=== PATIENT | female | born 1995 | race Two or more races ===

== ENCOUNTER 2021-02-20 08:52 | Emergency (ER) | payer MEDICAID, SELFPAY ==
[2021-02-20 09:02] VITALS: BP 146/92; PULSE 105; RESP 16; TEMP 37.5; O2SAT 98; BMI 29.2
--- NOTE | 2021-02-20 09:26 | ED.FEMALEGU ---
HPI - Female Genitourinary General Chief complaint: Urogenital-Female Stated complaint: vaginal odor Time Seen by Provider: 02/20/21 09:13 Source: patient Mode of arrival: ambulatory Limitations: no limitations History of Present Illness HPI Narrative: 25 y/o female with history of alcoholism, now sober x3 months who presents to the ER with c/o foul smelling vaginal discharge for 3 months. She reports when she was drinking heavily she had unprotected sex with different men but has not been sexaully active since she has been sober. She report ongoing vaginal discharge, sometimes white sometimes yellow. No itching. She reports some discomfort at times but no pelvic or abdominal pain. No fevers. MD elicited complaint: vaginal discharge Onset (ago): month(s) Location of symptoms: vaginal Severity: moderate Female Urogenital Radiation: Non-Radiating Consistency: constant Vaginal discharge: white, yellow and vaginal odor Vaginal bleeding: none Exacerbating factors: none Relieving factors: none Associated symptoms: denies other symptoms Treatment prior to arrival: none Sexual activity: No Patient : No Date of Last Menstrual Period: 01/24/21 Related Data Previous Rx's Medication Instructions Recorded metronidazole [Flagyl] 500 mg PO Q12H #14 tab 02/20/21 Allergies Allergy/AdvReac Type Severity Reaction Status Date / Time amoxicillin [AMOXICILLIN] Allergy Unknown RASH Unverified 05/12/20 16:34 latex [LATEX] Allergy Unknown RASH Unverified 05/12/20 16:34 morphine [MORPHINE] Allergy Unknown UNKNOWN Unverified 05/12/20 16:34 shellfish derived Allergy Unknown UNKNOWN Unverified 05/12/20 16:34 [SHELLFISH DERIVED] Latex Allergy Unknown Uncoded 04/06/19 00:00 Review of Systems Review of Systems: Constitutional: No Fever, No Chills ENT/Mouth: No sore throat, No Rhinorrhea, No Swallowing Difficulty Cardiovascular: No Chest Pain, No SOB, No Orthopnea, No Edema Respiratory: No Cough, No Sputum, No Wheezing, No dyspnea Gastrointestinal: No Nausea, No Vomiting, No Diarrhea, No abdominal Pain Genitourinary: No Dysuria, No Urinary Frequency, No Hematuria, +vaginal discharge Musculoskeletal: No joint pain, No Myalgias Skin: No Skin Lesions, No rash Neuro: No Weakness, No Numbness, No Dizziness, No Headache Heme/Lymph: No Bruising, No Lymphadenopathy PMFSH Past Medical History Medical History (Updated 02/20/21 @ 10:17 by SOTERO Irizarry) Alcohol abuse Asthma Surgical History (Updated 02/20/21 @ 09:06 by Barbi Geiger) H/O wrist surgery Date of Last Menstrual Period: 01/24/21 Social History Social History Advance Directives: Yes Advance Directives Information Provided: Yes Advance Directives on File: No Patient : No Physical Exam Vital Signs: Vital Signs: Last Vital Signs Temp 99.5 F 02/20/21 09:02 Pulse 105 H 02/20/21 09:02 Resp 16 02/20/21 09:02 BP 146/92 H 02/20/21 09:02 Pulse Ox 98 02/20/21 09:02 Body Mass Index 29.2 Appearance: Alert. Oriented X3. No acute distress. Eyes: Pupils equal, round and reactive to light. ENT: Pharynx normal. Neck: Normal inspection. Neck supple. CVS: Normal heart rate and rhythm. Pulses normal. Respiratory: No respiratory distress. Breath sounds normal. Abdomen: Soft and nontender. +BS x4 Pelvic: normal external gentialia, moderate amount of creamy white discharge Skin: Skin warm and dry. Normal skin color. Normal skin turgor. No rashes. Extremities: No lower extremity edema. Neuro: Oriented X 3. No motor deficit. No sensory deficit. Course Course Course Narrative: 25 y/o female presenting with foul smelling vaginal discharge x3 months. She would like to be treated for STI's. Exam is most consistent with BV, will treat accordingly. Hx of the same in 2019. She is agreeable with plan and stable for d/c. MDM - Female Genitourinary Lab Data Labs: Lab Results 02/20/21 02/20/21 Range/Units 09:46 09:47 Urine Color YELLOW Urine Appearance CLEAR Urine pH 6.0 (5.0-8.0) Ur Specific Tracy 1.015 (1.005-1.025) Urine Protein NEG (NEG-TRACE) MG/DL Urine Glucose (UA) NEG (NEG) MG/DL Urine Ketones NEG (NEG) MG/DL Urine Blood TRACE (NEG) Urine Nitrite NEG (NEG) Ur Leukocyte Esterase NEG (NEG) Urine Test NEGATIVE (NEGATIVE) Discharge Plan Discharge Clinical Impression: Vaginitis Qualifiers: Chronicity: acute Qualified Code(s): N76.0 - Acute vaginitis Patient Disposition: Home, Self-Care Instructions: Bacterial Vaginosis (ED) Additional Instructions: You were tested for and treated for possible Gonorrhea and Chlamydia If you are positive for either, we will call you. You may need additional antibiotics if they are positive Your exam is consistent with bacterial vaginosis - start taking the prescribed antibiotic tomorrow, you were given 1st dose in the ER. Recommend following up with the tapestry or your FREIGHT CONDUCTOR If you develop new or worsening symptoms come back to the ER for further evaluation. Prescriptions: New metronidazole [Flagyl] 500 mg tablet 500 mg PO Q12H Qty: 14 RF: 0
[2021-02-20 09:59] LABS: Glucose Urine UA NEG (NEG); Leukocyte Esterase Urine NEG (NEG); Nitrite Urine NEG (NEG); Specific Gravity - Urine 1.015 (1.005-1.025); Urine Blood TRACE (NEG); Urine Ketones NEG (NEG); Urine Protein NEG (NEG-TRACE)
[2021-02-20 10:05] LABS: Appearance Urine CLEAR; Color Urine YELLOW
[2021-02-20 10:05] LABS: UPreg QC Valid YES; Urine Pregnancy NEGATIVE (NEGATIVE)
[2021-02-20] MEDS: metroNIDAZOLE 500 MG TABLET 2000 MG PO (10:19)
[2021-02-20] MEDS: Azithromycin 500 MG TABLET 1000 MG PO (10:19)
[2021-02-20] MEDS: cefTRIAXone sodium 500 MG, Lidocaine HCl 1 % MPF 1 ML IM (10:20)
[2021-02-20 10:31] LABS: Bacteria Urine 1+ /LPF; Squamous Epithelial Cell Urine 3+ /LPF
[2021-02-20 11:47] LABS: CT PCR NOT DETECTED (Not Detect.); NG PCR NOT DETECTED (Not Detect.)
[2021-02-21 09:21] LABS: BV Int Neg Control Negative (Negative); BV Int Pos Control Positive (Positive)
== END 2021-02-20 10:33 | disposition home or self-care (01) ==
PROVIDERS: Physician Assistant; Emergency Provider Emergency Medicine Emergency Medical Services
DX: N76.0 Acute vaginitis (principal); J45.909 Unspecified asthma, uncomplicated
CPT/HCPCS: 81001; 81003; 81025; 87480; 87491; 87510; 87591; 87660; 96372; 99284; J0696

== ENCOUNTER 2024-05-21 14:38 | Outpatient (AMB) | payer OTHER, SELFPAY ==
--- NOTE | 2024-05-21 14:42 | A.OFFPC_ITS ---
Vital Signs 05/21/24 14:44 Height 5 ft 4.8 in Weight 188 lb BMI 31.5 BP 118/78 Blood Pressure Location Lt brachial Position Sitting Pulse 79 Pulse Source Pulse Oximeter Pulse Oximetry (%) 98 Oxygen Delivery Method Room Air Intake Visit Reasons: Prevention Specialist requesting PE Intake Note: Pt is here today for New patient visit PE. Pt states that she has not seen a doctor in a long time. Allergies amoxicillin [AMOXICILLIN] Allergy (Unknown, Unverified 05/12/20 16:34) RASH morphine [MORPHINE] Allergy (Unknown, Unverified 05/12/20 16:34) UNKNOWN shellfish derived [SHELLFISH DERIVED] Allergy (Unknown, Unverified 05/12/20 16:34) UNKNOWN Latex Allergy (Unknown, Uncoded 05/21/24 14:59) Unknown Medication List - Last Reconciled 05/21/24 by MARSHALL Rodriguez multivitamin 1 tab PO DAILY Tobacco use date assessed: 05/21/24 Dental Screening Dental Screen Date: 05/21/24 Did you have a dental visit in the last 12 months?: Yes Did you have a dental problem in the last 6 months where you did not have access to dental care?: No Was dental information given to patient?: Patient has dentist HPI Prevention Specialist requesting PE HPI Details New pt is here for a PE. Will order labs. Pt has not seen a provider in several years. Reports nipple inversion, denies any discharge or lumps. Pt would like a referral to [facility] arm[facility] personnel [id number]. Will refer today. Pt does not know if she has asthma??? She has not been diagnosed with asthma, according to her. She cnnnot recall any wheezing, used to smoke. Will order PFT testing. Pt has cysts vs lipomas to her shins. She reports that these are tender and increasing in size. Will refer to general surgery for possible removal. [facility] Medical History Hx of Alcohol abuse Asthma Surgical History H/O wrist surgery Family History Father Substance use disorder Mother Hypertension Substance use disorder Sister Diabetes Mental health disorder Social History Housing: House Patient Tobacco Use Status: Former Tobacco user (1 year ago) Tobacco use type: Cigarette e-Cigarette/Vaping Use: Currently Using service: No Current occupational status: unemployed Cognitive needs: No Hearing needs: No Vision needs: No Questionnaire PHQ-9 Over the last 2 weeks, how often have you been bothered by any of the following problems? 1. Little interest or pleasure in doing things: several days 2. Feeling down, depressed, or hopeless: several days 3. Trouble falling or staying asleep, or sleeping too much: nearly every day 4. Feeling tired or having little energy: several days 5. Poor appetite or overeating: several days 6. Feeling bad about yourself - or that you are a failure or have let yourself or your family down: several days 7. Trouble concentrating on things, such as reading the newspaper or watching television: not at all 8. Moving or speaking so slowly that other people could have noticed. Or the opposite - being so fidgety or restless that you have been moving around a lot more than usual: not at all 9. Thoughts that you would be better off or of hurting yourself in some way: not at all Total score: 8 Depression Screening Interpretation: Negative Depression Screening Done: Yes 87143 - PHQ-9 Billing: Yes Source: Developed by Drs. Lionel Redman, Pat Dent, Travis Crespo and colleagues, with an educational juvenal from [employer] Thrive Questionnaire Date Thrive assessed: 05/21/24 I am a: Patient What is your living situation today?: I have a steady place to live Within the past 12 months, did the food you bought not last and you didn't have the money to get more?: Sometimes True Within the past 12 months, did you worry whether your food would run out before you got money to buy more?: Sometimes True Do you have trouble paying for medicines?: Yes Do you have trouble getting transportation to medical appointments?: Yes Do you have trouble paying your heating and electricity bill?: Yes Do you have trouble taking care of your child, family member or friend?: No Do you have trouble with day-to-day activities such as bathing, preparing meals, shopping, managing finances, etc.?: Yes Are you interested in more education?: No Please select the resources that you would like help with: Housing/Senior Living, Food, Paying for medicine, Transportation and Daily support Currently or been in a relationship where the following occur: I choose not to answer THRIVE Score: 4 AUDIT C Alcohol Use Questionnaire (AUDIT-C) 1. How often do you have a drink containing alcohol?: 2-3 times a week 2. How many drinks containing alcohol do you have on a typical day when you are drinking?: 10 or more 3. How often do you have six or more drinks on one occasion?: Weekly Total Score: 10 Score Reviewed/Action Taken: Yes (will have BH reach out to pt for possible referral to addiction med) RAYMOND-7 AMB Questionnaire RAYMOND-7 Date RAYMOND - 7 assessed: 05/21/24 Feeling nervous, anxious, or on edge: 1 = Several days Not being able to stop or control worryin = Several days Worrying too much about different things: 1 = Several days Trouble relaxin = Several days Being so restless that it is hard to sit still: 0 = Not at all Becoming easily annoyed or irritable: 2 = More than half the days Feeling afraid as if something awful might happen: 3 = Nearly every day Total RAYMOND-7 score (0-4 normal; 5-9 mild; 10-14 moderate; 15-21 severe): 9 Source: Developed by Drs. Lionel Redman, Pat Dent, Travis Crespo and colleagues, with an educational juvenal from [employer] RAYMOND-7 Assessment Billing RAYMOND-7 Assessment Tool: RAYMOND-7 Assessment 10213 Review of Systems Const Denies chills and Denies fever(s) Eyes Denies blurry vision ENT Denies vertigo, Denies dizziness and Denies sore throat Card Denies chest pain at rest, Denies chest pain with activity, Denies diaphoresis, Denies dyspnea and Denies dyspnea on exertion Resp Denies cough, Denies dyspnea, Denies dyspnea on exertion and Denies wheezing GI Denies abdominal pain, Denies melena, Denies hematochezia, Denies constipation, Denies diarrhea and Denies loose stools Denies hematuria Musc Denies numbness and Denies tingling Skin/Breast Denies lesions Neuro Denies vertigo, Denies dizziness, Denies numbness and Denies tingling Psych Denies anxiety, Denies depression, Denies homicidal ideation, Denies suicidal ideation and Denies other (substance abuse) Aller/Immun Denies wheezing Physical exam (Primary Care) Vital Signs: Last Vital Signs Pulse 79 05/21/24 14:44 BP 118/78 05/21/24 14:44 Pulse Ox 98 05/21/24 14:44 Oxygen Delivery Method Room Air 05/21/24 14:44 BMI result Body Mass Index 31.5 Tobacco/Smoking Status: Tobacco use Status Tobacco use date assessed 05/21/24 05/21/24 14:54 Patient Tobacco Use Status Former Tobacco user (1 year 05/21/24 14:54 ago) Tobacco use type Cigarette 05/21/24 14:54 e-Cigarette/Vaping Use Currently Using 05/21/24 14:54 PHQ-9: PHQ-9 Score PHQ-9: Total score 8 05/21/24 15:01 Depression Screening Interpretation: Negative Thrive Assessment: Date of Thrive Assessment Date Thrive assessed 05/21/24 05/21/24 14:54 Currently or been in a relationship where the following occur: I choose not to answer Const General: cooperative Nutritional Appearance: well nourished Orientation/consciousness: patient oriented x3 HENMT Head: Yes normal to inspection, Yes normocephalic and Yes atraumatic Ears: TM's normal bilaterally Eyes General: appearance normal, both eyes and all related structures Alignment and Position: alignment normal and position normal Neck Neck: Yes normal visual inspection, Yes no lymphadenopathy and Yes supple Resp Effort & Inspection: normal respiratory effort Auscultation: clear to auscultation bilaterally Cardio Rate: regular rate Rhythm: regular rhythm Heart sounds: S1 normal heart sound present, S2 normal heart sound present and no murmurs GI Palpation (GI): Soft to palpation and nontender Auscultation: normal bowel sounds Skin Rashes: no rashes Neuro General: patient oriented x3, moves all extremities, no focal motor deficits and deep tendon reflexes 2+ bilaterally Romberg Test: Negative Extrem Other: bilat shins with round ? cysts/lipomas. Tenderness with touch. no surrounding erythema Psych Appearance: grossly normal Mental Status: mental status grossly normal Speech and movement: Normal speech and movement present Affect: normal affect Attitude: cooperative Thought process: Normal thought process present Thought content: Normal thought content present Insight: Good insight present (Psych) Judgement: Good judgement present (Psych) Assessment and Plan Assessment & Plan (1) Inversion, nipple: Code(s): N64.59 - Other signs and symptoms in breast Plan: Referred to [id number] (2) Screening for cervical cancer: Code(s): Z12.4 - Encounter for screening for malignant neoplasm of cervix Plan: Referred to [id number] (3) Asthma: Comment: ? Hx of asthma, pt not sure?? Code(s): J45.909 - Unspecified asthma, uncomplicated Plan: PFT testing ordered (4) Encounter for routine adult physical exam with abnormal findings: Code(s): Z00. - Encounter for general adult medical examination with abnormal findings Plan: Labs ordered (5) Lipoma: Comment: lipoma vs cysts Code(s): D17.9 - Benign lipomatous neoplasm, unspecified Plan: referred to Plan The patient agreed to the use of a medical records receptionist for this encounter. Scribed for RUTH Douglass-BC by Danna Beasley medical records receptionist, on 05/21/2024 at 14:55 EST. Orders: Orders Complete Blood Count Auto Diff Today Z00.01 - Encounter for general adult medical examination with abnormal findings Comprehensive [place]. Panel Fast Today Z00.01 - Encounter for general adult medical examination with abnormal findings Lipid Panel Today Z00.01 - Encounter for general adult medical examination with abnormal findings PFT pulmonary function test Today J45.909 - Unspecified asthma, uncomplicated TSH reflex Free T4 Today Z00.01 - Encounter for general adult medical examination with abnormal findings UA CC w/rflx Micro + Cult Today Z00.01 - Encounter for general adult medical examination with abnormal findings Referrals General Surgery Referral D17.9 - Benign lipomatous neoplasm, unspecified [facility] [employer] Referral N64.59 - Other signs and symptoms in breast, Z12.4 - Encounter for screening for malignant neoplasm of cervix Medications: Discontinued metronidazole (Flagyl) Supervising MD Eddie Jain Discontinued Reason: Patient Completed Course 500 mg PO Q12H 14 tabs 0RF Coding Level of Care Code New Pt Prev Care 18-39yr(59605 Diagnoses Inversion, nipple N64.59 Screening for cervical cancer Z12.4 Asthma J45.909 Encounter for routine adult physical exam with abnormal findings Z00.01 Lipoma D17.9 Additional Codes RAYMOND-7 Assessment Billing - RAYMOND-7 Assessment Tool: RAYMOND-7 Assessment 72757 ([id number])
[2024-05-21 14:44] VITALS: BP 118/78; PULSE 79; O2SAT 98; BMI 31.5
== END 2024-05-21 16:00 | disposition home or self-care (01) ==
PROVIDERS: Visit Provider Nurse Practitioner Family
DX: N64.59 Other signs and symptoms in breast (principal); Z12.4 Encounter for screening for malignant neoplasm of cervix; J45.909 Unspecified asthma, uncomplicated; Z00.01 Encounter for general adult medical examination with abnormal findings; D17.9 Benign lipomatous neoplasm, unspecified

== ENCOUNTER → 2024-05-21 14:38 | Outpatient (BNVA) | payer OTHER, SELFPAY | PROVIDERS: Visit Provider Nurse Practitioner Family | DX: Z00.01 Encounter for general adult medical examination with abnormal findings (principal); N64.59 Other signs and symptoms in breast; J45.909 Unspecified asthma, uncomplicated; D17.9 Benign lipomatous neoplasm, unspecified | CPT/HCPCS: 96127; 99385 ==

== ENCOUNTER 2024-06-23 13:35 | Outpatient (REF) | payer OTHER, SELFPAY ==
[2024-06-23 10:29] VITALS: PULSE 82; RESP 16; O2SAT 96
--- NOTE | 2024-06-23 13:42 | PFT_ITS ---
Indication: Asthma Spirometry [FEV1 to FVC 79%; FEV1 3.05 L; FVC 3.85 L. No significant response to bronchodilators noted. To note the FEF 01/12/2075 is down to 58% suggestive of small airways disease. Maximum voluntary ventilation 71% predicted] Lung Volumes [Total capacity 87% predicted; expiratory reserve volume 55% predicted] Diffusion Capacity [DLCO 104% predicted] Comparisons [None] Interpretation [No obstructive nor restrictive ventilatory defects identified. No significant response to bronchodilators noted. There is some evidence of small airways disease which is suspicious for asthma. Lung volumes are within normal limits. Decreasing the expiratory reserve volume could be secondary to an elevated BMI. Normal diffusing capacity. If asthma is in the differential methacholine challenge may be helpful for assessing for hyperactive airways. Clinical correlation warranted.] MTDD
== END 2024-06-23 13:36 | disposition home or self-care (01) ==
LOC: HO.RESP 13:35
PROVIDERS: PCP Nurse Practitioner Family; Visit Provider Nurse Practitioner Family
DX: J45.909 Unspecified asthma, uncomplicated (principal)
CPT/HCPCS: 94010; 94640; 94727; 94729

== ENCOUNTER → 2024-06-23 13:42 | Outpatient (BNV) | payer OTHER, SELFPAY | PROVIDERS: PCP Nurse Practitioner Family; Visit Provider Hospitalist | DX: J45.909 Unspecified asthma, uncomplicated (principal) | CPT/HCPCS: 94060; 94727; 94729 ==

== ENCOUNTER 2024-07-06 12:56 | Outpatient (AMB) | payer OTHER, SELFPAY ==
--- NOTE | 2024-07-06 12:57 | A.OFFVIS_ITS ---
Vital Signs 07/06/24 12:58 Height 5 ft 4.8 in Weight 187 lb 15.987 oz BMI 31.5 Intake Visit Reasons: tender lipomas vs cysts Intake Note: This patient presents for tender cysts vs lipomas. Pt c/o; reports tenderness. Veneer Manufacturer Required: No Accompanied by: Self / Same As Patient Allergies amoxicillin [AMOXICILLIN] Allergy (Unknown, Unverified 07/06/24 13:04) RASH morphine [MORPHINE] Allergy (Unknown, Unverified 07/06/24 13:04) UNKNOWN shellfish derived [SHELLFISH DERIVED] Allergy (Unknown, Unverified 07/06/24 13:04) UNKNOWN Latex Allergy (Unknown, Uncoded 07/06/24 13:04) Unknown Medication List - Last Reconciled 07/06/24 by Dagoberto Polanco MD multivitamin 1 tab PO DAILY HPI HPI tender lipomas vs cysts: Details: 29-year-old female referred for subcutaneous masses on both the left and right lower legs. She says that she has had this for ?a few years?. She says that this used to be small but have been increasing in size. This has been bothering him with pain and discomfort and she wants these removed. She denies any skin changes or discharge. [facility] Medical History (Updated 07/06/24 @ 13:13 by Dagoberto Polanco MD) Subcutaneous mass of both lower legs Hx of Alcohol abuse Asthma Surgical History H/O wrist surgery Family History Father Substance use disorder Mother Hypertension Substance use disorder Sister Diabetes Mental health disorder Social History Housing: House Patient Tobacco Use Status: Former Tobacco user (1 year ago) Tobacco use type: Cigarette e-Cigarette/Vaping Use: Currently Using service: No Current occupational status: unemployed Cognitive needs: No Hearing needs: No Vision needs: No Review of Systems Const Denies chills and Denies fever(s) Card Denies chest pain, Denies dyspnea and Denies dyspnea on exertion Resp Denies cough, Denies dyspnea and Denies dyspnea on exertion GI Denies hematochezia and Denies change in bowel habits Denies hematuria Musc Denies back pain and Denies limited range of motion Neuro Denies focal weakness and Denies convulsions Psych Denies depression and Denies mood swings Physical Exam Vital Signs: BMI result Body Mass Index 31.5 Const Other: Obese General: comfortable and no acute distress Orientation/consciousness: patient oriented x3 Neck Neck: Yes no lymphadenopathy Resp Auscultation: clear to auscultation bilaterally Cardio Rhythm: regular rhythm GI Palpation (GI): Soft to palpation, nontender and no guarding Neuro General: patient oriented x3 Extrem Other: Subcutaneous mass on the lateral aspect of the right lower leg about 1 cm in size Subcutaneous mass on the lateral aspect of the left lower leg about 1 cm in size as well Both appeared to be lipomas in consistency Assessment & Plan Assessment & Plan (1) Subcutaneous mass of both lower legs: Code(s): R22.43 - Localized swelling, mass and lump, lower limb, bilateral Category: Medical Plan: She has a subcutaneous mass on the left lower leg and another 1 in the right lower leg. This appeared to be lipomas. She wants this removed. She understands the technique of excision under local anesthesia. She was aware of the risks, benefits, and alternatives. She was given consent We will schedule this under local anesthesia here in the office on her next visit. Coding Level of Care Code New Pt Level 3 (13736) Diagnoses Subcutaneous mass of both lower legs R22.43
[2024-07-06 12:58] VITALS: BMI 31.5
== END 2024-07-06 13:25 | disposition home or self-care (01) ==
PROVIDERS: PCP Nurse Practitioner Family; Visit Provider Surgery
DX: R22.43 Localized swelling, mass and lump, lower limb, bilateral (principal)
CPT/HCPCS: 99203

== ENCOUNTER → 2024-07-06 12:56 | Outpatient (BNVA) | payer OTHER, SELFPAY | PROVIDERS: PCP Nurse Practitioner Family; Visit Provider Surgery | DX: R22.43 Localized swelling, mass and lump, lower limb, bilateral (principal) | CPT/HCPCS: 99202 ==

== ENCOUNTER 2024-08-20 13:46 | Outpatient (AMB) | payer OTHER, SELFPAY ==
--- NOTE | 2024-08-20 13:51 | MHC.OFFVIS ---
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 Allergies amoxicillin [AMOXICILLIN] Allergy (Unknown, Unverified 08/20/24 13:54) RASH morphine [MORPHINE] Allergy (Unknown, Unverified 08/20/24 13:54) UNKNOWN shellfish derived [SHELLFISH DERIVED] Allergy (Unknown, Unverified 08/20/24 13:54) UNKNOWN Latex Allergy (Unknown, Uncoded 08/20/24 13:54) Unknown Medication List - Last Reconciled 08/20/24 by Lilibeth Cunha CNM multivitamin 1 tab PO DAILY Is last menstrual period known: Yes Last menstrual period: 08/16/24 HPI HPI New patient nipple inversion: Details: Patient is here because she has concerns about her nipples and her breasts where she has noticed that often they can be inverted and sometimes they are very wrinkled in their appearance and she looked things up online and she had concerns because many of her symptoms by their description matched descriptions of breast cancer.. She is not sexually active, in no plans to be in the future.. She only recently started seeking care for her health this year and she has met with her new primary care provider and he has set her up with lots of appointments coming up she has already established with a new therapist and has what she feels as a good connection with that therapist. She had already started trying to eat healthier and exercise and work on losing weight. She has not gotten to do the fasting blood work yet but will do so soon She is nervous about having [place] her vaginal health for some time and would like to be checked and while it does not need to be today she would like to schedule that as well. Previously in the past she did go to [facility] 5th floor office but she thinks the last time was 2019. She is looking for a job but has not had any luck so far.. She has no intention of becoming sexually active any time soon She has been twice in her life and had abortions both times 1 time was very early but the 1st she was extremely young and the was somewhat advanced and she had to be admitted to hospital and given anesthesia and induced. [facility] Medical History Subcutaneous mass of both lower legs Hx of Alcohol abuse Asthma Surgical History H/O wrist surgery Family History Father Substance use disorder Mother Hypertension Substance use disorder Sister Diabetes Mental health disorder Social History Housing: House Patient Tobacco Use Status: Former Tobacco user (1 year ago) Tobacco use type: Cigarette e-Cigarette/Vaping Use: Currently Using service: No Current occupational status: unemployed Cognitive needs: No Hearing needs: No Vision needs: No Female Reproductive History Menstrual Age of Menarche: 14 Duration of menses: 3-5 days Date of last menstrual period: 08/16/24 control method: none Total pregnancies: 2 Full term: 0 History of abnormal pap smear: No (2019, neg.per patient) Physical Exam Vital Signs: Last Vital Signs BP 100/62 08/20/24 13:52 BMI result Body Mass Index 29.3 Chest Other: About physical symptoms on her nipples that made her concerned for breast cancer because of a list that she had seen online. Her nipples are everted with no exudates or rash or peau d'orange or abnormal epidermal changes whatsoever both breasts are normal no masses palpated no lymphadenopathy. There is some darkening of the skin towards the front side of her axilla and she does have some darkening of the skin around her neck. Not completely consistent with acanthosis nigricans , and might be indicative of tinea versicolor. Chest palpation & inspection: normal inspection of the chest and normal palpation of entire chest wall Breast/axilla inspection: normal inspection of the breasts and normal inspection of the axillae Breast/axilla palpation: normal palpation of the breasts, normal palpation of the axillae and no axillary lymphadenopathy Assessment & Plan Assessment & Plan (1) Inversion, nipple: Code(s): N64.59 - Other signs and symptoms in breast Category: Medical (2) Breast skin changes: Code(s): R23.4 - Changes in skin texture Category: Medical Plan Careful breast exam was done there was no mass peau d'orange skin dimpling lymphadenopathy rashes or any other indication that could be considered abnormal her nipples are in fact well everted and respond to temperature changes in the room. Patient has normal anatomy was reviewed with her for teaching purposes. Discussed arranging a visit soon for full exam with STD checking. Not able to add into today's visit secondary to time constraints Discussed safer sex and self-care Discussed her skin care in general. Recommend that she get her fasting lab work done soon and 1 of the things that this probably ordered is fasting blood sugar and that some of the darkening on her skin could be indicative possibly but not definitively of elevated blood sugars were insulin resistance/prediabetes however she is already doing the most important thing she can do to improve her health as regards that and that is working on healthy weight loss with exercise. The darkening of the skin has nothing to do with elevated blood sugars insulin resistance, it may possibly be connected with a condition known as tinea versicolor. A very simple treatment is to use Selsun Blue shampoo daily and leave it on for 5 minutes in the shower before rinsing it off and if it improves then it is a simple easy solution that helps kill the skin fungus and can be repeated as necessary. If it does not do anything then it has nothing to do with that. She is going to be following up with her primary when she gets her fasting blood work done and we will see her for full hall supervisor exam soon as it can be scheduled. Coding Level of Care Code New Pt Level 3 (18712) Diagnoses Inversion, nipple N64.59 Breast skin changes R23.4
[2024-08-20 13:52] VITALS: BP 100/62; BMI 29.3
== END 2024-08-20 14:53 | disposition home or self-care (01) ==
PROVIDERS: Visit Provider Advanced Practice Midwife
DX: N64.59 Other signs and symptoms in breast (principal); R23.4 Changes in skin texture
CPT/HCPCS: 99203

== ENCOUNTER → 2024-08-20 13:46 | Outpatient (BNVA) | payer OTHER, SELFPAY | PROVIDERS: Visit Provider Advanced Practice Midwife | DX: N64.59 Other signs and symptoms in breast (principal); R23.4 Changes in skin texture | CPT/HCPCS: 99202 ==

== ENCOUNTER 2024-08-24 14:03 | Outpatient (REF) | payer OTHER, SELFPAY ==
[2024-08-25 05:31] LABS: CT PCR NOT DETECTED (Not Detect.); NG PCR NOT DETECTED (Not Detect.)
[2024-08-25 08:30] LABS: Bacterial Vaginosis PCR NEGATIVE (Negative); Candida Group PCR NOT DETECTED (Not Detect); Candida glab krusei PCR NOT DETECTED (Not Detect); Trichomonas vaginalis PCR NOT DETECTED (Not Detect)
== END 2024-08-24 14:04 | disposition home or self-care (01) ==
LOC: HO.LAB 14:03
PROVIDERS: Visit Provider Advanced Practice Midwife
DX: Z01.419 Encounter for gynecological examination (general) (routine) without abnormal findings (principal); Z20.2 Contact with and (suspected) exposure to infections with a predominantly sexual mode of transmission; N89.8 Other specified noninflammatory disorders of vagina
CPT/HCPCS: 0352U; 87491; 87591; 88175; 99395; 99459

== ENCOUNTER 2024-08-24 14:03 | Outpatient (AMB) | payer OTHER, SELFPAY ==
[2024-08-24 14:05] VITALS: BP 100/60; BMI 29.3
--- NOTE | 2024-08-24 14:05 | A.OFFVIS_ITS ---
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 Present Allergies amoxicillin [AMOXICILLIN] Allergy (Unknown, Unverified 08/24/24 14:10) RASH morphine [MORPHINE] Allergy (Unknown, Unverified 08/24/24 14:10) UNKNOWN shellfish derived [SHELLFISH DERIVED] Allergy (Unknown, Unverified 08/24/24 14:10) UNKNOWN Latex Allergy (Unknown, Uncoded 08/24/24 14:10) Unknown Medication List - Last Reconciled 08/24/24 by Lilibeth Cunha CNM multivitamin 1 tab PO DAILY Is last menstrual period known: Yes Last menstrual period: 08/13/24 HPI 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 She came last week for her problem with her nipples that she was concerned about and had a full discussion about other concerns and so scheduled this annual exam so she could get checked for STDs and catch up on her Pap smear and get into a more regular schedule with pharmaceutical service representative care. She is not currently sexually active though she was this spring and she has having a funny odor ever since then and she is concerned about STDs so she definitely wants to get checked she is actually very scared about that.. She is trying to take care of herself these days and has been trying to lose weight and exercise and she just recently started prioritize in her health feels she is on good Path. [facility] Medical History Subcutaneous mass of both lower legs Hx of Alcohol abuse Asthma Surgical History H/O wrist surgery Family History Father Substance use disorder Mother Hypertension Substance use disorder Sister Diabetes Mental health disorder Social History Housing: House Patient Tobacco Use Status: Former Tobacco user (1 year ago) Tobacco use type: Cigarette e-Cigarette/Vaping Use: Currently Using service: No Current occupational status: unemployed Cognitive needs: No Hearing needs: No Vision needs: No Female Reproductive History Menstrual Age of Menarche: 14 Duration of menses: 3-5 days Date of last menstrual period: 08/13/24 control method: none Total pregnancies: 2 Full term: 0 History of abnormal pap smear: No (2019 neg.per pt.) Physical Exam Vital Signs: Last Vital Signs BP 100/60 08/24/24 14:05 BMI result Body Mass Index 29.3 Const General: healthy appearing, comfortable, no acute distress, well developed and alert Nutritional Appearance: average body habitus Orientation/consciousness: patient oriented x3 Limitations: no limitations HEENT Head: Yes normocephalic Neck Neck: Yes normal visual inspection Chest Chest palpation & inspection: normal inspection of the chest Breast/axilla inspection: normal inspection of the breasts and normal inspection of the axillae Breast/axilla palpation: normal palpation of the breasts and normal palpation of the axillae Resp Effort & Inspection: normal respiratory effort GI Inspection: Yes normal to inspection, No Abdominal wall edema and No distended Palpation (GI): Soft to palpation and nontender Other: External exam within limits vagina is and moist nulliparous cervix pink smooth clear scant mucus. Cervix is long close thick mobile midposition to posterior. Uterus is small midposition to anteverted mobile nontender adnexa nontender not enlarged good tone with Kegel. General: Yes bladder normal to palpation External Female Exam: normal external appearance and normal appearance of the urethra Speculum Exam - Vagina: normal appearance of the vagina, normal palpation and normal vaginal discharge Speculum Exam - Cervix: normal appearance of the cervix, normal palpation and nontender Bimanual exam- vagina & uterus: normal bimanual exam, normal palpation, uterine size normal, bladder normal to palpation, consistency normal, normal palpation, uterine mobility normal, uterine shape normal, No Cervical tenderness present, non-tender and no cervical motion tenderness Bimanual Exam- Adnexa, other: normal adnexae, no masses, normal and No adnexal tenderness Neuro General: patient oriented x3 Assessment & Plan Assessment & Plan (1) Screening for cervical cancer: Code(s): Z12.4 - Encounter for screening for malignant neoplasm of cervix Category: Medical (2) Encounter for screening examination for sexually transmitted disease: Code(s): Z11.3 - Encounter for screening for infections with a predominantly sexual mode of transmission Category: Medical (3) Breast cancer screening: Code(s): Z12.39 - Encounter for other screening for malignant neoplasm of breast Category: Medical (4) Well woman exam with routine gynecological exam: Code(s): Z01.419 - Encounter for gynecological examination (general) (routine) without abnormal findings Category: Medical Plan -----Discussed in this visit the following: healthy balanced diet, regular and consistent exercise, getting recommended health screens, doing the best she can for her particular health concerns, kegel exercises, pap smear screening and followup recommendations, mammography screening and SBE, normal changes in cycles in her life stage--- .----I reviewed available options for Control Methods and their associated side effect profiles. In particular, we discussed the method most of interest to her. -currently she is planning abstinence. She feels she made some risky choices in the past is concerned that somebody may have given her something because she has had malodor since her last sexual encounter last spring so she is concerned about STIs wants to get checked for everything. --Discussed the patient's concerns or worries about sexually transmitted infections, and any symptoms she may or may not have, and why she particularly feels she may have been placed at risk, versus a desire just to be 100% sure that she is okay and neg for any testing she elects to have done today. --Discussed safer sex and condom use and advocating for herself and safety. --Discussed any concerns she may have, for partner fidelity, trust, safety, and respectful partner behavior towards her. --Reviewed how she may obtain the results of what ever testing she chooses to have done today or in the future and how to keep herself safe in the future as well. --Discussed any resources or supports she may have for discussing confidential concerns with trusted confidents. I am giving her information about the patient portal so that she can sign up and get her lab results herself. Also discussed her concerns from visit last week she has not tried to Selsun blue yet but the darkening on her skin is less obvious today. There is no abnormal breast or turns whatsoever with today's exam. Orders: Orders Bacterial Vaginosis Panel Today N89.8 - Other specified noninflammatory disorders of vagina Pap Smear Today Z01.419 - Encounter for gynecological examination (general) (routine) without abnormal findings Hepatitis B Surface Antigen Today [id number] - Encounter for gynecological examination (general) (routine) without abnormal findings, Z11.3 - Encounter for screening for infections with a predominantly sexual mode of transmission, Z12.39 - Encounter for other screening for malignant neoplasm of breast, Z12.4 - Encounter for screening for malignant neoplasm of cervix CT NG by PCR Today N89.8 - Other specified noninflammatory disorders of vagina, Z20.2 - Contact with and (suspected) exposure to infections with a predominantly sexual mode of transmission Hepatitis C Antibody Today [id number] - Encounter for gynecological examination (general) (routine) without abnormal findings, Z11.3 - Encounter for screening for infections with a predominantly sexual mode of transmission, Z12.39 - Encounter for other screening for malignant neoplasm of breast, Z12.4 - Encounter for screening for malignant neoplasm of cervix Syphilis Screen Today Z - Encounter for gynecological examination (general) (routine) without abnormal findings, Z11.3 - Encounter for screening for infections with a predominantly sexual mode of transmission, Z12.39 - [place] unter for other screening for malignant neoplasm of breast, Z12.4 - Encounter for screening for malignant neoplasm of cervix HIV Ab/Ag Today Z419 - Encounter for gynecological examination (general) (routine) without abnormal findings, Z11.3 - Encounter for screening for infections with a predominantly sexual mode of transmission, Z12.39 - Encounter for other screening for malignant neoplasm of breast, Z12.4 - Encounter for screening for malignant neoplasm of cervix Coding Level of Care Code New Pt Prev Care 18-39yr([id number] Diagnoses Screening for cervical cancer Z12.4 Encounter for screening examination for sexually transmitted disease Z11.3 Breast cancer screening Z12.39 Well woman exam with routine gynecological exam Z
== END 2024-08-24 15:02 | disposition home or self-care (01) ==
LOC: HO.HWSM 14:03
PROVIDERS: Visit Provider Advanced Practice Midwife
DX: Z01.419 Encounter for gynecological examination (general) (routine) without abnormal findings (principal)
CPT/HCPCS: 99395; 99459